=== PATIENT | male | born 1975 | race Two or more races ===

== ENCOUNTER 2020-05-19 22:12 | Emergency (ER) | payer MEDICAID ==
[~2020-05-19] VITALS: Ht 172.7 cm; Wt 77.1 kg
[2020-05-20] MEDS ORDERED: ACETAMINOPHEN/CODEINE#3 (300/30mg) TAB PO ONE (12:00)
[2020-05-20 12:05] VITALS: BP 135/92
== END 2020-05-20 12:23 | disposition home or self-care (01) ==
LOC: ER 22:12
DX: S06.0X1A Concussion with loss of consciousness of 30 minutes or less, initial encounter (principal); S01.311A Laceration without foreign body of right ear, initial encounter; X58.XXXA Exposure to other specified factors, initial encounter; Y93.89 Activity, other specified; Y92.89 Other specified places as the place of occurrence of the external cause; Y99.8 Other external cause status
CPT/HCPCS: 12011; 70450; 70486; 72125

== ENCOUNTER 2020-05-27 10:15 | Emergency (ER) | payer MEDICAID ==
[~2020-05-27] VITALS: Ht 175.3 cm; Wt 84.8 kg
[2020-05-27 10:43] VITALS: BP 149/100
== END 2020-05-27 11:52 | disposition home or self-care (01) ==
LOC: ER 10:15
DX: S01.311D Laceration without foreign body of right ear, subsequent encounter (principal); R42 Dizziness and giddiness; R68.84 Jaw pain; E11.9 Type 2 diabetes mellitus without complications; I10 Essential (primary) hypertension; X58.XXXD Exposure to other specified factors, subsequent encounter
CPT/HCPCS: 99282; J7030